=== PATIENT | female | born 1960 | race Caucasian/White ===

== ENCOUNTER → 2024-04-17 12:53 | Outpatient (REF) | payer BC, SELFPAY | LOC: HWRAD 12:53 | PROVIDERS: ATTENDING PHYSICIAN Family Medicine | DX: Z00.00 Encounter for general adult medical examination without abnormal findings (principal); E04.2 Nontoxic multinodular goiter; Z13.820 Encounter for screening for osteoporosis | CPT/HCPCS: 76536; 77080 ==

== ENCOUNTER → 2024-06-14 07:34 | Outpatient (REF) | payer BC, SELFPAY | LOC: RAD 07:34 | PROVIDERS: ATTENDING PHYSICIAN Internal Medicine Endocrinology, Diabetes & Metabolism; FAMILY PHYSICIAN Family Medicine | DX: E05.90 Thyrotoxicosis, unspecified without thyrotoxic crisis or storm (principal); E04.2 Nontoxic multinodular goiter | CPT/HCPCS: 78014; A9516 ==

== ENCOUNTER → 2024-07-12 07:35 | Outpatient (REF) | payer BC, SELFPAY ==
[2024-07-12 07:50] VITALS: BP 119/59; BP_SYST 55
== END ==
LOC: RADI 07:35
PROVIDERS: ATTENDING PHYSICIAN Internal Medicine Endocrinology, Diabetes & Metabolism; FAMILY PHYSICIAN Family Medicine
DX: E04.2 Nontoxic multinodular goiter (principal)
CPT/HCPCS: 88173; 10005; 10006

== ENCOUNTER → 2024-11-07 10:34 | Outpatient (REF) | payer BC, SELFPAY | LOC: HWWDC 10:34 | PROVIDERS: ATTENDING PHYSICIAN Obstetrics & Gynecology; FAMILY PHYSICIAN Family Medicine | DX: Z12.31 Encounter for screening mammogram for malignant neoplasm of breast (principal) | CPT/HCPCS: 77063; 77067 ==

== ENCOUNTER → 2025-05-14 15:16 | Outpatient (REF) | payer BC, SELFPAY | LOC: HWRAD 15:16 | PROVIDERS: ATTENDING PHYSICIAN Internal Medicine Endocrinology, Diabetes & Metabolism; FAMILY PHYSICIAN Family Medicine | DX: E04.2 Nontoxic multinodular goiter (principal) | CPT/HCPCS: 76536 ==

== ENCOUNTER → 2025-07-05 08:35 | Outpatient (REF) | payer BC, SELFPAY | LOC: HWRAD 08:35 | PROVIDERS: ATTENDING PHYSICIAN Family Medicine | DX: Z00.01 Encounter for general adult medical examination with abnormal findings (principal); M81.0 Age-related osteoporosis without current pathological fracture | CPT/HCPCS: 77080 ==

== ENCOUNTER 2025-08-15 13:07 | Emergency (ER) | payer BC, SELFPAY ==
[2025-08-15 13:16] VITALS: BP 155/87
[2025-08-15 13:50] LABS: Hematocrit 45.2 % (37.0-47.0); Hemoglobin 14.9 g/dL (12.0-16.0); Mean Corp Hgb Conc. 33.0 g/dL (33.0-37.0); Mean Corpuscular Volume 91.7 fL (81.0-99.0); Nucleated Red Blood Cells % 0 %; Platelet Count 210 10^3/uL (130-400); Red Cell Dist. Width 12.3 % (11.5-14.5)
[2025-08-15 15:00] VITALS: BP 134/71
--- NOTE | 2025-08-15 15:05 | ED.CVA ---
History of Present Illness
General
Chief Complaint: CVA/TIA Symptoms
Time Seen by Provider: 08/15/25 15:05
Onset of Stroke Symptoms
Onset of symptoms known: Yes
Date of onset of symptoms: 08/15/25
Time of onset of symptoms: 10:00
History of Present Illness
History of Present Illness:
FOCUSED PAST MEDICAL HISTORY
- Osteoporosis recently started alendronate
REVIEW OF OLD RECORDS
- I reviewed records, the patient had a thyroid biopsy July 2024
Note:
CHIEF COMPLAINT(S)
The patient experienced sudden shakiness, difficulty comprehending speech, and difficulty articulating during a visit to a store.
HISTORY OF PRESENT ILLNESS
The patient is a 65-year-old female who experienced sudden onset of symptoms while shopping for a refrigerator at approximately 10:00 AM. She described feeling 'really shaky' and having difficulty comprehending the language spoken by a salesperson,
ralph to needing to translate between languages. She also noted difficulty expressing her thoughts verbally. The patient was accompanied by a friend, who also noticed the change in her communication ability. The episode reportedly lasted for an
uncertain amount of time, estimated around a few minutes by the friend, but the patient believes it to have been less. By the time emergency medical services arrived, the patient felt the symptoms had started resolving, though she was observed to be
slightly tired. She does not report any daily alcohol use and has not experienced similar episodes in the past. She elsewhere denies any chest pain, abdominal discomfort, fevers, or urinary symptoms at this time.
MEDICATIONS
The patient started taking Alendronate last month for osteoporosis.
PHYSICAL EXAM
General: Slightly tired, alert, and cooperative.
Skin: Warm, dry.
Head: Normocephalic, atraumatic.
Neck: Supple, trachea midline, no bruit noted.
Eyes, Ears, Nose, Mouth, and Throat: Oral mucosa moist.
Cardiovascular: Normal peripheral perfusion, no edema. Regular rhythm.
Respiratory: Respirations are non-labored.
Gastrointestinal: Abdomen nondistended.
Back: Normal range of motion, normal alignment.
Musculoskeletal: Normal range of motion, normal strength. Can perform [id number] test.
Neurological: Alert and oriented to person, place, time, and situation. No focal neurological deficit observed. Able to answer questions appropriately. Stroke scale is 0. Normal finger-nose testing.
Psychiatric: Cooperative, appropriate mood & affect.
PROBLEM LIST
Acute Problems:
1. Transient episode of speech and comprehension difficulty with shakiness.
PLAN
The patient will undergo a CT angiogram of the neck vessels to assess for possible blockages, as advised due to episode characteristics. An intravenous line will be placed for the imaging procedure. Further evaluation will proceed based on imaging
results and current symptom status.
DIFFERENTIAL DIAGNOSIS
The Differential Diagnosis includes, in no particular order and is not limited to:
1. Transient Ischemic Attack (TIA)
2. Stroke
3. Hypoglycemia
4. Seizure
5. Migraine with aura
6. Hypertensive crisis
7. Anxiety or panic attack
8. Vestibular disorder
9. Medication side effects
10. Thyroid disorder
RADIOLOGY
- CT head and CTA head and neck reviewed which shows no acute abnormality, congenital abnormality noted
EKG
- Sinus 68, no acute ST abnormality, no old to compare
LABS
- CBC normal
UPDATE
-SUMMARY OF ENCOUNTER
The patient, a 65-year-old female, was seen in the emergency department due to a sudden episode of shakiness, and difficulty comprehending and articulating speech. A CT scan of the brain was performed and showed no acute findings indicating an
impending stroke. A CT angiogram was also conducted to assess the neck vessels for blockages; the results did not indicate any significant obstruction or risk of stroke. However, the radiologist noted that one vertebral artery was smaller, which,
though likely congenital, was not contributing to the symptoms. Blood work came back within normal limits, and cardiac monitoring showed no arrhythmia, specifically no atrial fibrillation. The patient reported feeling better, and communication was
assessed as normal during the encounter.
PLAN
The patient was provided with contact information for Dr. Tatyana Parrish, a neurologist in the [place] area, for follow-up. The primary care doctor may also be consulted for further evaluation as needed. The patient was advised to monitor
symptoms and seek immediate care if they recur.
Offered and considered to keep patient in the hospital however the patient prefers outpatient management which I feel is reasonable as CTA was performed tonight and she is in a sinus rhythm. She also has no significant medical issues other than the
osteoporosis.
PATIENT EDUCATION AND COUNSELING
The patient was informed about the potential of a transient ischemic attack or similar event and advised on signs and symptoms to monitor that would warrant immediate medical attention. The utility of the CT angiogram and its role in ruling out
major vascular issues contributing to the symptoms were also discussed.
FOLLOW-UP INSTRUCTIONS
The patient was advised to follow up with Dr. Tatyana Parrish, a neurologist, and/or their primary care physician for further evaluation as needed.
MEDICATION RECONCILIATION
No new medications were administered or prescribed during the visit.
MEDICAL DECISION MAKING
- Complexity of Data Reviewed: Chronic conditions affecting care include osteoporosis managed with Alendronate. Differential diagnoses considered include transient ischemic attack, stroke, hypoglycemia, seizure, and migraine with aura, among others.
- Data:
- Category 1: A CT scan of the brain and a CT angiogram of the neck vessels were reviewed with no acute findings. Cardiac monitoring was performed, showing no atrial fibrillation.
- Category 2: The patients friend, who was present at the time of the incident, provided historical context regarding the duration and nature of the episode.
- Risk: Consideration of Admission/Observation was evaluated; however, the patient was deemed safe for outpatient management with close follow-up. The reasoning was based on reassuring work-up results, symptom resolution, stable vitals, and patient
reliability for follow-up.
DIAGNOSIS
1. Possible TIA
Phy Exam
Physical Exam
Physical Exam:
See HPI
Course
Orders/Labs/Results
Orders:
Orders
08/15/25 13:21
Electrocardiogram (*1) Urgent
Reason for Study: TIA/Stroke
08/15/25 13:22
EKG- Treatment ONCE
08/15/25 13:40
Complete Blood Count/With Diff Urgent
08/15/25 15:00
Comprehensive Metabolic Panel Urgent
Troponin I Urgent
08/15/25 15:16
CT Head & Neck Angio W/wo IV Urgent
Comment:
Reason For Exam: resolving aphasia
Abnormal Lab Results
08/15/25 08/15/25
13:40 15:00
MPV 10.7 H fL
(7.4-10.4)
Absolute Lymphs (auto) 0.9 L 10^3/uL
(1.2-3.4)
Neutrophils % 77.3 H %
(42.2-75.2)
Lymphocytes % 13.9 L %
(20.5-51.1)
Total Protein 8.8 H g/dl
(6.3-8.2)
Albumin 5.2 H g/dl
(3.5-5.0)
08/15/25 13:40
08/15/25 15:00
Vital Signs
Initial and Last Documented VS:
Initial Vital Signs
Temp Pulse Resp BP Pulse Ox
36.8 C 81 20 155/87 98
08/15/25 13:16 08/15/25 13:16 08/15/25 13:16 08/15/25 13:16 08/15/25 13:16
Last Documented Vital Signs
Temp Pulse Resp BP Pulse Ox
36.8 C 73 16 128/67 94
08/15/25 13:16 08/15/25 18:21 08/15/25 18:21 08/15/25 18:19 08/15/25 18:21
*Pulse Oximetry
SaO2: 99
Oxygen Mode of Delivery: Room air
Patient hypoxic: no
*Critical Care Note
Total Time (30-74mins, 75-104mins- exclusive of procedures): Not Applicable
ED Attending Note
-
Portions of this chart may have been created with voice recognition software.� Occasional wrong word or��sound alike� substitutions may have occurred due to the inherent limitations of voice recognition software.
Discharge Plan
Departure
Patient Disposition: Home (Routine Discharge)
Date of Disposition: 08/15/25
Time of Disposition: 18:23
Patient with high blood pressure during this ER visit?: Yes
Discharge Problem:
TIA (transient ischemic attack)
Instructions: Transient Ischemic Attack (DC), BLOOD PRESSURE
Prescriptions:
No Action
No Current Medications
0
Referrals:
Tatyana Parrish MD [Non-Admitting Privileges, Neurology]
Ronald Hanna MD [Family Provider, Family Practice]
Activity Restrictions/Additional Instructions:
The CAT scan of the brain including the CAT scan of the head and neck regarding your blood vessels shows no acute abnormality. You have a normal sinus rhythm. Basic blood work is unremarkable. In case this could have been a mini stroke/TIA, you
could take baby aspirin on a daily basis. I have also given the contact information for a local neurologist you can follow-up with as well.
Interventions
Interventions:
*Risk Screen - Suicide Last Done: 08/15/25 15:01
*General Assessment Last Done: 08/15/25 13:16
*Neglect/Abuse Screening Last Done: 08/15/25 15:01
*ED COVID-19 Vaccine History Last Done: 08/15/25 15:01
*ED Influenza Vaccine History Last Done: 08/15/25 15:01
ED- Pulmonary Assessment Last Done: 08/15/25 15:05
ED- Neurological Assessment Last Done: 08/15/25 15:05
ED- Cardiac Assessment Last Done: 08/15/25 15:05
Discharge Date and Time
Print Language: KOREAN
[2025-08-15 15:19] LABS: ALT (SGPT) 22 U/L (0-35); AST (SGOT) 25 U/L (14-36); Albumin 5.2 g/dl (3.5-5.0); Alkaline Phosphatase 82 U/L (38-126); Blood Urea Nitrogen 15 mg/dl (7-17); Calcium 9.9 mg/dl (8.4-10.2); Carbon Dioxide 24 mmol/L (22-30); Chloride 107 mmol/L (98-107); Glucose 94 mg/dl (70-99); Potassium 3.5 mmol/L (3.5-5.1); Sodium 142 mmol/L (135-145); Total Protein 8.8 g/dl (6.3-8.2); eGFR > 60.00
[2025-08-15 15:30] LABS: Troponin I < 0.012 ng/ml
[2025-08-15 16:00] VITALS: BP 111/77
[2025-08-15 18:19] VITALS: BP 128/67
== END 2025-08-15 18:31 | disposition home or self-care (01) ==
LOC: EMR 13:07
PROVIDERS: Emergency Medicine; EMERGENCY PHYSICIAN Emergency Medicine; FAMILY PHYSICIAN Family Medicine
DX: G45.9 Transient cerebral ischemic attack, unspecified (principal); M81.0 Age-related osteoporosis without current pathological fracture; Z79.899 Other long term (current) drug therapy
CPT/HCPCS: 99284; 70496; 70498; 80053; 84484; 85025; 93005; Q9967

== ENCOUNTER → 2025-09-07 16:49 | Outpatient (REF) | payer BC, SELFPAY | LOC: PAVMRI 16:49 | PROVIDERS: ATTENDING PHYSICIAN Specialist; FAMILY PHYSICIAN Family Medicine | DX: G45.9 Transient cerebral ischemic attack, unspecified (principal) | CPT/HCPCS: 70551 ==